=== PATIENT | female | born 1935 | race Caucasian/White ===

== ENCOUNTER 2019-03-22 08:55 | Outpatient (CLI) | payer OTHER | END 2019-03-22 08:56 | disposition home or self-care (01) | LOC: SONOGRAMA 08:55 | DX: E04.1 Nontoxic single thyroid nodule (principal) ==

== ENCOUNTER 2021-08-31 11:55 | Inpatient (IN) | payer OTHER ==
[~2021-08-31] VITALS: Ht 162.6 cm; Wt 53.5 kg
[2021-08-31] MEDS ORDERED: LISINOPRIL10 MG PO (12:16)
[2021-09-07] MEDS ORDERED: PROTONIX20 MG PO (12:30)
[2021-09-07] MEDS ORDERED: INTESTINEX680 M1 PO (12:31)
== END 2021-09-07 14:57 | disposition home or self-care (01) | DRG 812 ==
LOC: ER 11:55 → MEDJ 21:54 → MEDI 09-03 10:47 → MEDJ 09-03 13:32
PROVIDERS: ADMIT Internal Medicine; ATTEND Internal Medicine
PROC: 30233N1 Transfusion of Nonautologous Red Blood Cells into Peripheral Vein, Percutaneous Approach (ICD-10-PCS; principal; 2021-08-31)
PROC: 0DJ08ZZ Inspection of Upper Intestinal Tract, Via Natural or Artificial Opening Endoscopic (ICD-10-PCS; 2021-09-07)
DX: D50.0 Iron deficiency anemia secondary to blood loss (chronic) (principal); N18.4 Chronic kidney disease, stage 4 (severe); E03.8 Other specified hypothyroidism; Z20.822 Contact with and (suspected) exposure to COVID-19; I13.10 Hypertensive heart and chronic kidney disease without heart failure, with stage 1 through stage 4 chronic kidney disease, or unspecified chronic kidney disease; K25.9 Gastric ulcer, unspecified as acute or chronic, without hemorrhage or perforation; D63.1 Anemia in chronic kidney disease; R19.5 Other fecal abnormalities